=== PATIENT | female | born 2005 | race Caucasian/White ===

== ENCOUNTER 2024-07-10 23:06 | Emergency (ER) | payer OTHER, SELFPAY ==
[2024-07-10 23:17] VITALS: BP 142/111; PULSE 74; RESP 18; TEMP 36.6; O2SAT 100; BMI 23.4
--- NOTE | 2024-07-11 | ED_ITS ---
HPI - General Adult General Chief complaint: Chest Pain Stated complaint: Chest discomfort Time Seen by Provider: 07/10/24 23:15 History of Present Illness HPI narrative: Pt presents to ED with chest pressure since early this afternoon, also c/o headache. Denies fever or chills. Does complain of some nausea. Just started [employer] year of college, from [employer]. Pt. does states she has had this in the past but hasn't lasted as long . 18-year-old young woman presenting to the emergency department with concern of chest discomfort. It sounds as though that this has been intermittently present for about a month. Is present most days. Has been experiencing some shortness of breath and heart pounding harder. She does workout most days without any exercise intolerance however but might notice her heartbeat more prominently. Today was experiencing this anterior chest discomfort before taking a hot shower at which point she also then reports feeling somewhat woozy or maybe lightheaded. She does not endorse history of rapid heart rate hear or sense of palpitations. Has experienced a little nausea. Episode this afternoon just lasted longer. Initially I understood that had cardiac monitoring of some sort done recently but apparently that was some time ago. She does say that has experience some stress and anxiety but these symptoms seem different. Is to begin [employer] year of college. 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 On my initial interview does not report that had been recently evaluated in clinic. This did include some blood draws. This is 1st mentioned by mom as Sharon has been looking for advice on degree of workup to do; gives me permission to talk to her mother. Mom does report that she had a cocktail last night and that this would seem to affect herself. Mom reports a history of eye surgeries as a child to correct strabismus and amblyopia. That she was seen in clinic with concern of recurrent headaches. Sounds as though is initiated on an abortive medication for headache. 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 Follow-up I year later noted no change. Apparently Sharon has expressed some concern over this and related to the headaches and then wooziness that she feels sometimes. Does feel a good deal of stress and anxiety historically; worries. Related Data Home Medications ?Medication ?Instructions ?Recorded ?Confirmed No Known Home Medications 07/10/24 07/10/24 Allergies Allergy/AdvReac Type Severity Reaction Status Date / Time amoxicillin Allergy Verified 07/10/24 23:21 Review of Systems Status of ROS: Reports: 6 or more systems reviewed and unremarkable except as noted in History and below PFSH [facility] Social History Smoking Status: Never smoker Do you use any of these nicotine containing products: None Second hand tobacco smoke exposure: No How often do you have a drink containing alcohol: never How often do you have six or more drinks on one occasion: Never AUDIT-C Alcohol total score: 0 Non-prescribed substance use: denies use service: No Exam Narrative: Exam Narrative: Pleasant. Does appear mildly anxious. Uncertain. Skin is warm and dry. She is well-perfused. Extremities are without edema. Cranial nerves 2-12 look to be intact. Pupils are equal and brisk. Lungs are clear. Heart in regular rate and rhythm with a split S2 persistently. Seems vaguely uncomfortable to palpation over the anterior chest but this does not clearly reproduce the discomfort that she had been noting. Abdomen is soft. No supraclavicular crepitus. No JVD. Const: Vital Signs, click to edit/add: Vital Signs - 24 hr 07/10/24 23:17 07/11/24 01:54 Temperature 97.8 F 98.0 F Pulse Rate [Pulse Oximeter] 74 66 Respiratory Rate 18 16 Blood Pressure [Ri ght Upper Arm] 142/111 H 129/91 H Pulse Oximetry 100 98 Oxygen Delivery Me thod Room Air Room Air Documenting provider has reviewed patient's vital signs: yes Course Vital Signs Vital signs: Initial Vital Signs Temperature 97.8 F 07/10/24 23:17 Temperature Source Temporal Artery Scan 07/10/24 23:17 Pulse Rate 74 07/10/24 23:17 Pulse Rhythm Regular 07/10/24 23:17 Respiratory Rate 18 07/10/24 23:17 Blood Pressure 142/111 H 07/10/24 23:17 Blood Pressure Mean 121 H 07/10/24 23:17 Blood Pressure Position Sitting 07/10/24 23:17 Pulse Oximetry 100 07/10/24 23:17 Oxygen Delivery Method Room Air 07/10/24 23:17 Vital Signs Temperature 97.8 F 07/10/24 23:17 Pulse Rate 74 07/10/24 23:17 Respiratory Rate 18 07/10/24 23:17 Blood Pressure 142/111 H 07/10/24 23:17 Pulse Oximetry 100 07/10/24 23:17 Oxygen Delivery Method Room Air 07/10/24 23:17 Temperature 98.0 F 07/11/24 01:54 Pulse Rate 66 07/11/24 01:54 Respiratory Rate 16 07/11/24 01:54 Blood Pressure 129/91 H 07/11/24 01:54 Pulse Oximetry 98 07/11/24 01:54 Oxygen Delivery Method Room Air 07/11/24 01:54 Medical Decision Making MDM Narrative Medical decision making narrative: It does not sound as though these headaches are waking her from sleep. Is actually sleeping all right. Nor does she wake with these headaches. This would seem reassuring. MRI for potential further characterization given description prior would not be available tonight here. This chest pressure is doubtful to be ischemic cardiovascular disease. Does not seem to have exercise intolerance suggestive of heart failure for example. No infectious etiology likely to this chest discomfort. Not clearly pleuritic. With the lightheadedness and chest discomfort though perhaps not terribly likely but might have some concerns of a cardiomyopathy. Anemia is in differential. I do review labs as done in clinic which includes chemistries with normal blood glucose and electrolytes and renal function lipids were also done. No hemoglobin was done. I would check for anemia here. There was considerable discussion around potential benefit of any chest x-ray. This seemed to not really be wanted by Yara or mother. This could assess for cardiac silhouette and push further evaluation of cardiomyopathy. Also could certainly look for pneumothorax or pneumomediastinum in this case. Pulmonary embolus in differential. Possible dysrhythmia. Recent chemistries I do not believe included magnesium. Will check this as well. Vagueness otherwise of ?chest discomfort? does suggest emotional component as potential diagnosis of exclusion Initial EKG reviewed by me as below. Looks very good. No prior for comparison. After long discussion decided to check for labs and she would consider further whether not she wanted to do chest x-ray. Labs are reassuring as below. No events on cardiac monitoring. Chest x-ray ultimately was decided not be done. Well during time in emergency department. Hemodynamically stable. See patient discharge plan for further discussion Lab Data Labs: Lab Results 07/11/24 Range/Units 01:15 Hgb 12.8 (12.0-16.0) gm/dL D-Dimer Quant (PE/DVT) 0.18 (0.00-0.50) ug/ml Magnesium 2.3 (1.5-2.6) mg/dL Troponin I < 0.01 L (0.01-0.04) ng/mL NT-Pro-B Natriuret Pep < 20 pg/mL ECG Data Attestation: I personally reviewed and interpreted this ECG as follows: (Normal sinus rhythm at a rate of 74. 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 I would message for a follow-up with your clinic/primary care provider and track down reports/images of prior head imaging. Discuss again here your headaches with regard to this imaging and your feelings of stress/anxiety. I hope school continues to go well for you. Prescriptions: No Action No Known Home Medications Follow Up/Referrals: Provider,Not a Local [Primary Care Provider] - Stand Alone Forms: [employer] Info Instructions
--- NOTE | 2024-07-11 00:52 | PC.NURSE ---
Pt up to bathroom, states chest pressure has gotten a bit better. Physician talking with parent on phone.
[2024-07-11 01:20] LABS: Hemoglobin* 12.8 gm/dL (12.0-16.0)
[2024-07-11 01:36] LABS: Magnesium* 2.3 mg/dL (1.5-2.6)
[2024-07-11 01:40] LABS: D Dimer Quantitative* 0.18 ug/ml (0.00-0.50)
[2024-07-11 01:50] LABS: NT Pro B Type NatriureticPept* < 20 pg/mL; Troponin I* < 0.01 ng/mL (0.01-0.04)
[2024-07-11 01:54] VITALS: BP 129/91; PULSE 66; RESP 16; TEMP 36.7; O2SAT 98
== END 2024-07-11 02:23 | disposition home or self-care (01) ==
PROVIDERS: Emergency Provider Family Medicine
DX: R07.9 Chest pain, unspecified (principal); R51.9 Headache, unspecified
CPT/HCPCS: 36415; 83735; 83880; 84484; 85018; 85379; 99284